=== PATIENT | male | born 1965 | race African-American/Black ===

== ENCOUNTER 2022-10-20 11:23 | Inpatient (IN) | payer OTHER ==
[2022-10-20] VITALS (9 sets, daily range): BP systolic 115–145; BP diastolic 40–99
[~2022-10-20] VITALS: Ht 177.8 cm; Wt 63.0 kg
[2022-10-20] MEDS ORDERED: 0.9% SODIUM CHLORIDE 10 ML SYRINGE IVP PRN (11:30)
[2022-10-20] MEDS ORDERED: CEFEPIME HCL 2 GM/VIAL IM ONE (11:30)
[2022-10-20] MEDS ORDERED: VANCOMYCIN 1GM/WATER(PEG/NADA) 200 ML IV ONE (11:30)
[2022-10-20] MEDS ORDERED: CEFEPIME HCL 2 GM in DEXTROSE 5%-WATER 50 ML IV ONE (12:00)
[2022-10-20 12:16] LABS: BASOPHILS % (AUTO) 0.8 % (0.0-2.0); EOSINOPHILS % (AUTO) 0.2 % (1.0-6.0); HEMATOCRIT 41.6 % (41-53); HEMOGLOBIN 12.4 g/dL (13.5-17.5); MEAN CORPUSCULAR HEMOGLOBIN 26.9 pg (26.0-34.0); MEAN CORPUSCULAR HGB CONC 29.7 G/dL (31.0-37.0); MEAN CORPUSCULAR VOLUME 90 fL (80-100); MONOCYTES # (AUTO) 0.4 K/uL (0.1-1.0); MONOCYTES % (AUTO) 3.4 % (2.0-9.0); NEUTROPHILS # (AUTO) 10.5 K/uL (1.8-7.7); NEUTROPHILS % (AUTO) 80.6 % (40.0-70.0); RED CELL DISTRIBUTION WIDTH 15.6 % (11.5-14.5)
[2022-10-20] MEDS ORDERED: SODIUM CHLORIDE 0.9% 1,000 ML IV ONE (12:30)
[2022-10-20 12:42] LABS: INR 2.5 (0.9-1.1); PROTHROMBIN TIME 25.4 SEC (9.4-11.6)
[2022-10-20] MEDS ORDERED: NOREPINEPHRINE 8 MG/D5%-WATER 250 ML IV ONE (12:52)
[2022-10-20 12:56] LABS: COVID AG,FIA SOURCE NASAL SWAB
[2022-10-20 12:58] LABS: PLATELET COUNT (AUTO) 72 K/uL (150-450); PLATELET MORPHOLOGY COMMENT LARGE PLTS PRESENT
[2022-10-20] MEDS: NOREPINEPHRINE 8 MG/D5%-WATER 250 ML IV PRN ×2 (13:00→13:21)
[2022-10-20] MEDS ORDERED: CALCIUM GLUCONATE 100 MG/ML 10 ML IVP ONE ×2 (13:00→13:30)
[2022-10-20 13:11] LABS: APPEARANCE,URINE TURBID (CLEAR); GLUCOSE, URINE (UA) NEGATIVE (NEGATIVE); KETONES,URINE NEGATIVE (NEGATIVE); LEUKOCYTE ESTERASE ,URINE TRACE (NEGATIVE); NITRATE,URINE NEGATIVE (NEGATIVE); OCCULT BLOOD,URINE LARGE (NEGATIVE); PROTEIN,URINE 100-200,SEE CONFIRM mg/dL (NEGATIVE); SPECIFIC GRAVITIY, URINE 1.011 (1.003-1.030); UROBILINOGEN,URINE <=1.0 mg/dL (<=1.0)
[2022-10-20 13:13] LABS: BILIRUBIN,URINE SMALL (NEGATIVE)
[2022-10-20 13:19] LABS: RBC,URINE Full Field /HPF (0-2); SULFOSALICYLIC ACID,URINE 3+ (Negative)
[2022-10-20 13:20] LABS: BACTERIA,URINE None Seen /HPF (None Seen); WBC,URINE 0-2 /HPF (0-5)
[2022-10-20] MEDS ORDERED: DEXTROSE 50%-WATER 25 GM/50 ML SYRINGE IVP ONE ×3 (13:30→19:15)
[2022-10-20] MEDS ORDERED: ALBUTEROL SULFATE 2.5 MG/0.5 ML NEB SOLUTION NEB ONE (13:30)
[2022-10-20] MEDS ORDERED: INSULIN REGULAR, HUMAN 100 UNITS/ML IVP ONE ×2 (13:30→19:15)
[2022-10-20 13:46] LABS: INFLUENZA TYPE A NEGATIVE FOR TYPE A (NEGATIVE); INFLUENZA TYPE B NEGATIVE FOR TYPE B (NEGATIVE)
[2022-10-20] MEDS ORDERED: PHENYLEPHRINE HCL IN 0.9% NACL 400 MCG/10 ML SYRINGE IVP ONE (14:08)
[2022-10-20] MEDS ORDERED: NOREPINEPHRINE 8 MG/D5%-WATER 250 ML IV PRN (14:30)
[2022-10-20] MEDS ORDERED: VASOPRESSIN 40 UNITS in DEXTROSE 5%-WATER 98 ML IV PRN (14:30)
[2022-10-20] MEDS ORDERED: ROCURONIUM BROMIDE 10 MG/ML 5 ML VIAL ONE ×2 (14:41)
[2022-10-20] MEDS ORDERED: ETOMIDATE 2 MG/ML 10 ML VIAL ONE (14:41)
[2022-10-20 15:10] LABS: ALANINE AMINOTRANSFERASE 339 U/L (12-78); ALBUMIN 1.3 g/dL (3.4-5.0); ALKALINE PHOSPHATASE 735 U/L (46-116); ANION GAP 27 mmol/L (8-16); BILIRUBIN,TOTAL 6.5 mg/dL (0.1-1.0); CALCIUM, TOTAL 8.2 mg/dL (8.8-10.5); CHLORIDE 90 mmol/L (98-107); CREATININE 5.44 mg/dL (0.60-1.30); GLUCOSE,RANDOM 294 mg/dL (70-110); UREA NITROGEN, BLOOD 82 mg/dL (7-18)
[2022-10-20 15:19] LABS: GLOMERULAR FILTR. RATE CALC 13 mL/min (>60)
[2022-10-20 15:20] LABS: ASPARTATE AMINOTRANSFERASE 1154 U/L (15-37)
[2022-10-20 15:22] LABS: CARBON DIOXIDE 6 mmol/L (22-29); POTASSIUM 8.4 mmol/L (3.5-5.1); SODIUM SERUM 123 mmol/L (136-145)
[2022-10-20 15:34] LABS: LACTIC ACID 20.6 mmol/L (0.4-2.0)
[2022-10-20] MEDS ORDERED: 0.9% SODIUM CHLORIDE 5 ML NEB SOLUTION NEB ONE (15:38)
[2022-10-20] MEDS ORDERED: SODIUM BICARBONATE [ADULT] 8.4% 50 MEQ/50 ML SYRINGE IVP ONE (16:00)
[2022-10-20 17:37] LABS: ALANINE AMINOTRANSFERASE 519 U/L (12-78); ALBUMIN 1.6 g/dL (3.4-5.0); ALKALINE PHOSPHATASE 968 U/L (46-116); ANION GAP 29 mmol/L (8-16); BILIRUBIN,TOTAL 8.5 mg/dL (0.1-1.0); CALCIUM, TOTAL 8.9 mg/dL (8.8-10.5); CHLORIDE 91 mmol/L (98-107); CREATININE 5.49 mg/dL (0.60-1.30); GLUCOSE,RANDOM 155 mg/dL (70-110); SODIUM SERUM 128 mmol/L (136-145); TOTAL PROTEIN, SERUM 5.1 g/dL (6.4-8.2); UREA NITROGEN, BLOOD 85 mg/dL (7-18)
[2022-10-20 17:38] LABS: ACETAMINOPHEN < 2 mcg/mL (10-30); ASPARTATE AMINOTRANSFERASE 1825 U/L (15-37); GLOMERULAR FILTR. RATE CALC 13 mL/min (>60)
[2022-10-20 18:00] LABS: CARBON DIOXIDE 8 mmol/L (22-29); POTASSIUM 8.2 mmol/L (3.5-5.1)
[2022-10-20 18:08] LABS: AMPHET/METH SCREEN,URINE NEGATIVE (NEGATIVE); BARBITURATE SCREEN, URINE NEGATIVE (NEGATIVE); BENZODIAZEPINES SCREEN,URINE NEGATIVE (NEGATIVE); CANNABINOID SCREEN,URINE POSITIVE (NEGATIVE); COCAINE SCREEN,URINE NEGATIVE (NEGATIVE); METHADONE SCREEN, URINE NEGATIVE (NEGATIVE); OPIATE SCREEN,URINE NEGATIVE (NEGATIVE); PHENCYCLIDINE SCREEN,URINE NEGATIVE (NEGATIVE)
[2022-10-20] MEDS ORDERED: ETHYL ALCOHOL 62% ANTISEPTIC NASAL SANITIZER 0.6 ML AMPUL NASAL ONE (18:15)
[2022-10-20] MEDS: SODIUM ZIRCONIUM CYCLOSILICATE 5 GM POWDER PACKET PO SCH ×2 (19:27→21:00)
[2022-10-20] MEDS ORDERED: SODIUM ZIRCONIUM CYCLOSILICATE 5 GM POWDER PACKET PO SCH (21:00)
[2022-10-20] MEDS ORDERED: SODIUM CHLORIDE 0.9% 250 ML IV ONE ×2 (21:38→21:51)
[2022-10-20] MEDS: DOXYCYCLINE HYCLATE 100 MG in DEXTROSE 5%-WATER 100 ML IV SCH (21:52)
[2022-10-20] MEDS: ETHYL ALCOHOL 62% ANTISEPTIC NASAL SANITIZER 0.6 ML AMPUL NASAL SCH (21:52)
[2022-10-20] MEDS ORDERED: MAGNESIUM HYDROXIDE SUSPENSION 30 ML UDCUP PO PRN (23:00)
[2022-10-20] MEDS ORDERED: BISACODYL 10 MG RECTAL RECTAL SUPPOSITORY PR PRN (23:00)
[2022-10-20] MEDS ORDERED: ONDANSETRON HCL 4 MG/2 ML VIAL IVP PRN (23:00)
[2022-10-20] MEDS ORDERED: IPRATROPIUM BROMIDE 0.5 MG/2.5 ML NEB SOLUTION NEB PRN (23:00)
[2022-10-20] MEDS ORDERED: ACETAMINOPHEN 325 MG TABLET PO PRN (23:00)
[2022-10-20] MEDS ORDERED: ALBUTEROL SULFATE 2.5 MG/0.5 ML NEB SOLUTION NEB PRN (23:00)
[2022-10-20] MEDS ORDERED: ZOLPIDEM TARTRATE 5 MG TABLET PO PRN (23:00)
[2022-10-20] MEDS ORDERED: VANCOMYCIN 1GM/WATER(PEG/NADA) 200 ML IV PRN (23:30)
[2022-10-21] VITALS (9 sets, daily range): BP systolic 81–139; BP diastolic 19–43
[2022-10-21] MEDS: DOXYCYCLINE HYCLATE 100 MG in DEXTROSE 5%-WATER 100 ML IV SCH ×3 (00:02→19:27)
[2022-10-21] MEDS: PIPERACILLIN SODIUM/TAZOBACTAM 2.25 GM in DEXTROSE 5%-WATER 50 ML IV SCH ×2 (00:12→08:16)
[2022-10-21 02:35] LABS: CALCIUM, TOTAL 7.8 mg/dL (8.8-10.5); CREATININE 5.49 mg/dL (0.60-1.30)
[2022-10-21 02:39] LABS: POTASSIUM 8.3 mmol/L (3.5-5.1)
[2022-10-21] MEDS ORDERED: INSULIN REGULAR, HUMAN 100 UNITS/ML IVP ONE (04:15)
[2022-10-21] MEDS ORDERED: DEXTROSE 50%-WATER 25 GM/50 ML SYRINGE IVP ONE ×3 (04:15→21:53)
[2022-10-21] MEDS ORDERED: NOREPINEPHRINE 8 MG/D5%-WATER 250 ML IV ONE (05:46)
[2022-10-21 06:08] LABS: SITE, BLOOD GAS ARTERIAL LINE
[2022-10-21 06:09] LABS: ABG HCO3 8.9 mmol/L (22.0-26.0); ABG PCO2 34 mmHg (35-45); SOURCE, BLOOD GAS ARTERIAL; TEMPERATURE, FAHRENHEIT, BG 98.6 FAHREN (96.0-98.6)
[2022-10-21 06:10] LABS: ABG BASE EXCESS -22.6 mmol/L (-2.0-3.0); ABG CARBOXYHEMOGLOBIN 0.3 % (0.0-1.5); ABG METHEMOGLOBIN 0.1 % (0.0-1.5); ABG OXYGEN CONTENT 0.3 mL/dL (15.0-23.0); ABG OXYGEN SATURATION 99.7 % (95.0-98.0); ABG OXYHEMOGLOBIN 99.3 % (94.0-100.0); ABG PH 7.012 (7.35-7.450); ABG TOTAL HEMOGLOBIN 12.6 G/dL (12.0-18.0); O2 DEVICE,BLOOD GAS VENT (ROOM AIR)
[2022-10-21 06:11] LABS: PEEP,BG 5 cm H2O; VT, ABG 450 ml
[2022-10-21] MEDS: NOREPINEPHRINE 8 MG/D5%-WATER 250 ML IV PRN ×3 (06:11→19:27)
[2022-10-21] MEDS ORDERED: VASOPRESSIN 40 UNITS in DEXTROSE 5%-WATER 98 ML IV PRN (06:15)
[2022-10-21 06:51] LABS: GLUCOSE,POINT OF CARE 168 MG/DL (70-110)
[2022-10-21 06:51] LABS: GLUCOSE,POINT OF CARE 121 MG/DL (70-110)
[2022-10-21] MEDS ORDERED: FentaNYL CIT 1000MCG/0.9% NACL 100 ML IV PRN (07:30)
[2022-10-21] MEDS: HEPARIN SODIUM,PORCINE 5,000 UNITS/ML VIAL SQ SCH ×3 (08:00→15:53)
[2022-10-21 08:08] LABS: BASOPHILS % (AUTO) 0.4 % (0.0-2.0); EOSINOPHILS % (AUTO) 0.7 % (1.0-6.0); HEMATOCRIT 32.4 % (41-53); HEMOGLOBIN 10.4 g/dL (13.5-17.5); LYMPHOCYTES # (AUTO) 2.4 K/uL (1.0-4.8); LYMPHOCYTES % (AUTO) 18.9 % (22.0-44.0); MEAN CORPUSCULAR HEMOGLOBIN 27.6 pg (26.0-34.0); MEAN CORPUSCULAR HGB CONC 32.1 G/dL (31.0-37.0); MEAN CORPUSCULAR VOLUME 86 fL (80-100); MONOCYTES # (AUTO) 0.5 K/uL (0.1-1.0); NEUTROPHILS # (AUTO) 9.6 K/uL (1.8-7.7); RED BLOOD CELL COUNT(AUTO) 3.77 MIL/uL (4.50-5.90); RED CELL DISTRIBUTION WIDTH 15.3 % (11.5-14.5)
[2022-10-21] MEDS: SODIUM ZIRCONIUM CYCLOSILICATE 5 GM POWDER PACKET PO SCH ×2 (08:17→20:46)
[2022-10-21] MEDS: DOCUSATE SODIUM 100 MG CAPSULE PO SCH ×2 (08:17→20:47)
[2022-10-21] MEDS: ETHYL ALCOHOL 62% ANTISEPTIC NASAL SANITIZER 0.6 ML AMPUL NASAL SCH ×2 (08:17→20:47)
[2022-10-21 08:25] LABS: ALBUMIN 1.7 g/dL (3.4-5.0); BILIRUBIN,TOTAL 8.5 mg/dL (0.1-1.0); CALCIUM, TOTAL 7.7 mg/dL (8.8-10.5); CREATININE 5.39 mg/dL (0.60-1.30); MAGNESIUM 3.5 mg/dL (1.80-2.40); TOTAL PROTEIN, SERUM 4.8 g/dL (6.4-8.2); VANCOMYCIN,RANDOM 13.1 mcg/mL (25.0-50.0)
[2022-10-21 08:35] LABS: POTASSIUM 7.6 mmol/L (3.5-5.1)
[2022-10-21 08:36] LABS: PLATELET COUNT (AUTO) 21 K/uL (150-450)
[2022-10-21 08:40] LABS: ABG A-A DIFF O2 106.8 mmHg (10-20.0); ABG BASE EXCESS -12.3 mmol/L (-2.0-3.0); ABG CARBOXYHEMOGLOBIN 0.6 % (0.0-1.5); ABG HCO3 15.8 mmol/L (22.0-26.0); ABG METHEMOGLOBIN 0.3 % (0.0-1.5); ABG OXYGEN CONTENT 15.4 mL/dL (15.0-23.0); ABG OXYGEN SATURATION 96.6 % (95.0-98.0); ABG OXYHEMOGLOBIN 95.7 % (94.0-100.0); ABG PCO2 26 mmHg (35-45); ABG PH 7.337 (7.35-7.450); ABG TOTAL HEMOGLOBIN 11.4 G/dL (12.0-18.0); O2 DEVICE,BLOOD GAS VENTILATOR (ROOM AIR); PEEP,BG 5 cm H2O; PO2, ARTERIAL BG 77.9 mmHg (84.0-92.0); SITE, BLOOD GAS ARTERIAL LINE; SOURCE, BLOOD GAS ARTERIAL; TEMPERATURE, FAHRENHEIT, BG 95.5 FAHREN (96.0-98.6); VT, ABG 450 ml
[2022-10-21] MEDS ORDERED: PANTOPRAZOLE SODIUM 40 MG/VIAL IVP SCH (09:00)
[2022-10-21] MEDS ORDERED: PHENYLEPHRINE HCL 800 MG in DEXTROSE 5%-WATER 170 ML IV PRN (09:45)
[2022-10-21] MEDS ORDERED: CALCIUM GLUCONATE 100 MG/ML 10 ML IVP ONE (10:00)
[2022-10-21] MEDS ORDERED: VANCOMYCIN 1GM/WATER(PEG/NADA) 200 ML IV ONE (10:00)
[2022-10-21] MEDS: DOPamine 400MG/D5W[STANDARD] 250 ML IV PRN ×2 (10:09→19:19)
[2022-10-21 14:09] LABS: CALCIUM, TOTAL 7.7 mg/dL (8.8-10.5); CREATININE 5.21 mg/dL (0.60-1.30); MAGNESIUM 3.3 mg/dL (1.80-2.40); PHOSPHORUS 8.4 mg/dL (2.5-4.9)
[2022-10-21 14:11] LABS: POTASSIUM 7.1 mmol/L (3.5-5.1)
[2022-10-21] MEDS ORDERED: NXSTAGE RFP-402 K0/CA3 5,000 ML IRRIG PRN (15:15)
[2022-10-21 15:40] LABS: OCCULT BLOOD,GASTRIC FLUID POSITIVE (NEGATIVE)
[2022-10-21] MEDS ORDERED: EPINEPHrine 2 MG in DEXTROSE 5%-WATER 248 ML IV PRN (16:00)
[2022-10-21] MEDS ORDERED: ALBUMIN HUMAN 25%-25GM/100ML 100 ML IV SCH (16:00)
[2022-10-21] MEDS ORDERED: PIPERACILLIN/TAZO 3.375 GM/D5W 50 ML IV SCH (16:00)
[2022-10-21 19:06] LABS: CALCIUM, TOTAL 7.5 mg/dL (8.8-10.5); CREATININE 4.83 mg/dL (0.60-1.30); MAGNESIUM 3.1 mg/dL (1.80-2.40); PHOSPHORUS 8.6 mg/dL (2.5-4.9)
[2022-10-21 19:15] LABS: POTASSIUM 7.2 mmol/L (3.5-5.1)
[2022-10-21] MEDS ORDERED: EPINEPHrine 1:10,000 [1 MG/10 ML] SYRINGE ONE (21:50)
[2022-10-21] MEDS ORDERED: EPINEPHrine 1:10,000 [1 MG/10 ML] SYRINGE IVP ONE (21:53)
[2022-10-21] MEDS ORDERED: SODIUM BICARBONATE [ADULT] 8.4% 50 MEQ/50 ML SYRINGE IVP ONE (21:53)
[2022-10-21] MEDS ORDERED: CALCIUM CHLORIDE 100 MG/ML 10 ML SYRINGE IVP ONE (21:53)
[2022-10-22 02:01] LABS: GLUCOSE,POINT OF CARE 113 MG/DL (70-110)
== END 2022-10-21 21:54 | DRG 871 ==
LOC: EMS 11:29 → ICU 17:20
PROVIDERS: ADMIT Hospitalist; ATTEND Hospitalist
PROC: 5A1945Z Respiratory Ventilation, 24-96 Consecutive Hours (ICD-10-PCS; principal; 2022-10-20)
PROC: 0BH17EZ Insertion of Endotracheal Airway into Trachea, Via Natural or Artificial Opening (ICD-10-PCS; 2022-10-20)
PROC: 06HY33Z Insertion of Infusion Device into Lower Vein, Percutaneous Approach (ICD-10-PCS; 2022-10-20)
PROC: 04HY32Z Insertion of Monitoring Device into Lower Artery, Percutaneous Approach (ICD-10-PCS; 2022-10-20)
PROC: 30233K1 Transfusion of Nonautologous Frozen Plasma into Peripheral Vein, Percutaneous Approach (ICD-10-PCS; 2022-10-20)
PROC: 5A1D90Z Performance of Urinary Filtration, Continuous, Greater than 18 hours Per Day (ICD-10-PCS; 2022-10-20)
PROC: 5A12012 Performance of Cardiac Output, Single, Manual (ICD-10-PCS; 2022-10-21)
DX: A41.9 Sepsis, unspecified organism (principal); E43 Unspecified severe protein-calorie malnutrition; J96.00 Acute respiratory failure, unspecified whether with hypoxia or hypercapnia; E87.20 Acidosis, unspecified; E87.1 Hypo-osmolality and hyponatremia; R57.9 Shock, unspecified; N17.9 Acute kidney failure, unspecified; Z68.1 Body mass index [BMI] 19.9 or less, adult; Z20.822 Contact with and (suspected) exposure to COVID-19; I10 Essential (primary) hypertension; D69.6 Thrombocytopenia, unspecified; E11.65 Type 2 diabetes mellitus with hyperglycemia; E88.09 Other disorders of plasma-protein metabolism, not elsewhere classified; E87.5 Hyperkalemia; K70.40 Alcoholic hepatic failure without coma; R74.8 Abnormal levels of other serum enzymes; R31.29 Other microscopic hematuria; K70.30 Alcoholic cirrhosis of liver without ascites; Z87.891 Personal history of nicotine dependence
CPT/HCPCS: 31500; 36556; 70450; 71045; 71250; 72192; 74018; 74150; 76770; 80048; 80053; 80202; 80307; 81001; 81002; 82009; 82271; 82805; 82962; 83605; 83735; 83880; 84100; 84484; 85025; 85610; 85730; 86850; 86900; 86901; 86927; 87040; 87070; 87081; 87205; 87804; 90947; 92950; 93005; 93306; 94002; 94003; 94640; 99291; 99292; C9113; G0378; G0480; G0481; J0171; J0610; J0692; J1265; J1644; J1815; J2370; J2543; J3490; J7030; J7050; J7060; P9017; P9046; Q9967; 36415-L1; 36415-TC; J7613